=== PATIENT | male | born 2000 | race Hispanic/Latino ===

== ENCOUNTER 2023-09-09 13:11 | Emergency (ER) | payer OTHER ==
[~2023-09-09] VITALS: Ht 170.2 cm; Wt 57.3 kg
[2023-09-09 13:33] VITALS: TEMP 98.1
[2023-09-09 13:43] LABS: BASO % 0.5 % (0.0-1.0); EOS # 0.1 10^3/uL (0.0-0.5); EOS % 0.9 % (0.0-3.0); HEMATOCRIT 43.7 % (42.0-52.0); HEMOGLOBIN 14.9 g/dl (13.5-17.5); LYMPH # 2.2 10^3/uL (1.5-5.0); LYMPH % 27.6 % (24.0-44.0); MEAN CORPUSCULAR HEMOGLOBIN 30.7 pg (27.0-33.0); MEAN CORPUSCULAR HGB CONC 34.1 g/dl (32.0-36.5); MEAN CORPUSCULAR VOLUME 89.9 fl (80.0-96.0); MONO # 0.7 10^3/uL (0.0-0.8); MONO % 8.1 % (2.0-8.0); NEUTROPHILS # 5.1 10^3/uL (1.5-8.5); NEUTROPHILS % 62.8 % (36.0-66.0); PLATELET COUNT, AUTOMATED 191 10^3/uL (150-450); RED BLOOD COUNT 4.86 10^6/uL (4.30-6.10); WHITE BLOOD COUNT 8.1 10^3/uL (4.0-10.0)
[2023-09-09 14:08] LABS: BLOOD UREA NITROGEN 21 MG/DL (9-23); CALCIUM LEVEL 9.6 MG/DL (8.5-10.1); CARBON DIOXIDE LEVEL 27 MMOL/L (20-31); CHLORIDE LEVEL 104 MMOL/L (98-107); CK-MB VALUE MASS < 1.0 NG/ML (<3.6); CREATININE FOR GFR 0.79 MG/DL (0.70-1.30); GLOMERULAR FILTRATION RATE > 60.0 (>60); GLUCOSE, FASTING 87 MG/DL (60-100); POTASSIUM SERUM 3.9 MMOL/L (3.5-5.1); SODIUM LEVEL 139 MMOL/L (136-145)
[2023-09-09 14:09] LABS: CPK CREATINE PHOSPHOKINASE 206 U/L (46-171); MB/CK RELATIVE INDEX 0.48 (< OR =4)
[2023-09-09 15:10] LABS: CK-MB VALUE MASS < 1.0 NG/ML (<3.6)
[2023-09-09 15:12] LABS: CPK CREATINE PHOSPHOKINASE 207 U/L (46-171); MB/CK RELATIVE INDEX 0.48 (< OR =4)
[2023-09-09 15:26] VITALS: BP 108/59; O2SAT 98
== END 2023-09-09 16:31 | disposition home or self-care (01) ==
LOC: EDBD 13:11 → M ED 13:11
DX: R07.9 Chest pain, unspecified (principal); M25.561 Pain in right knee

== ENCOUNTER 2024-12-12 16:50 | Emergency (ER) | payer OTHER ==
[~2024-12-12] VITALS: Ht 170.2 cm; Wt 59.1 kg
[2024-12-12] MEDS: LIDOCAINE 1% MDV 20 ML VIAL IM ONE (17:30)
[2024-12-12] MEDS: TETANUS/DIPHTH/ACEL. PERTUSSIS 0.5 ML SYR IM.IMMUN ONE (17:54)
[2024-12-12 18:05] VITALS: BP 114/59; TEMP 96.7; O2SAT 98
== END 2024-12-12 18:05 | disposition home or self-care (01) ==
LOC: M ED 16:50
DX: S61.012A Laceration without foreign body of left thumb without damage to nail, initial encounter (principal); Y92.019 Unspecified place in single-family (private) house as the place of occurrence of the external cause; Y93.9 Activity, unspecified; Y99.9 Unspecified external cause status; W26.0XXA Contact with knife, initial encounter; Z91.013 Allergy to seafood; Z23 Encounter for immunization

== ENCOUNTER 2024-12-27 17:10 | Emergency (ER) | payer OTHER ==
[~2024-12-27] VITALS: Ht 170.2 cm; Wt 61.4 kg
[2024-12-27 19:20] VITALS: BP 131/84; TEMP 99.3; O2SAT 100
== END 2024-12-27 19:48 | disposition left against medical advice (07) ==
LOC: M ED 17:10
DX: Z53.21 Procedure and treatment not carried out due to patient leaving prior to being seen by health care provider (principal)